=== PATIENT | male | born 1930 | race Caucasian/White ===

== ENCOUNTER 2016-11-30 12:09 | Inpatient (IN) | payer OTHER ==
[~2016-11-30] VITALS: Ht 165.1 cm; Wt 58.2 kg
--- NOTE | 2016-11-30 15:45 | ERA ---
ER Documentation Chief Complaint Date/Time DATE: 11/30/16 TIME: 15:44 Chief Complaint Right knee pain HPI The patient is 86-year-old male, presenting to the ER because of right knee pain for the last 3 days, worse today. He is unable to ambulate because of the pain. he denies any trauma, denies fever, chills, neck pain, chest pain, abdominal pain, vomiting, dysuria, diarrhea. He does not smoke, drink Past medical history: Hypertension, BPH Past surgical history: Right inguinal herniorrhaphy ROS All systems reviewed and are negative except as per history of present illness. Medications Home Meds Reported Medications Magnesium Oxide (Magnesium) 250 Mg Tablet, 250 MG PO BID, TAB 11/30/16 Naproxen* (Naproxen*) 500 Mg Tablet, 500 MG PO DAILY, TAB 11/30/16 Dutasteride* (Avodart*) 0.5 Mg Capsule, 0.5 MG PO DAILY, CAP 11/30/16 Donepezil* (Donepezil*) 5 Mg Tablet, 5 MG PO DAILY, #30 TAB 11/30/16 Aspirin* (Aspirin* EC) 81 Mg Tablet.dr, 81 MG PO DAILY, TAB 11/30/16 Amlodipine Besylate* (Amlodipine Besylate*) 5 Mg Tablet, 5 MG PO DAILY, #30 TAB 11/30/16 Multivitamins* (Theragran*) 1 Tab Tab, 1 TAB PO DAILY, TAB 11/30/16 Allergies Allergies: Coded Allergies: No Known Allergy (Unverified , 11/30/16) Physical Exam Vitals Vital Signs Date Time Temp Pulse Resp B/P Pulse Ox O2 Delivery O2 Flow Rate FiO2 11/30/16 20:27 97.5 58 18 116/59 100 Room Air 11/30/16 19:00 97.4 65 20 116/61 99 Room Air 11/30/16 12:20 100.6 69 20 118/57 99 Physical Exam Const: No acute distress. Head: Atraumatic. Eyes: Normal Conjunctiva. ENT: Normal External Ears, Nose and Mouth. Neck: Full range of motion. No meningismus. Resp: Clear to auscultation bilaterally. Cardio: Regular rate and rhythm, no murmurs. Abd: Soft, non distended, normal bowel sounds, non tender. Skin: No petechiae or rashes. Back: No midline or flank tenderness. Ext: Bilateral knee with crepitus. Right knee is edematous and warm to touch, vague calf tenderness Neur: Awake and alert. No focal deficit Psych: Normal Mood and Affect. Result Diagram: 11/30/16 1600 11/30/16 1600 Results 24 hrs Laboratory Tests Test 11/30/16 16:00 11/30/16 16:50 Activated Partial Thromboplast Time 33.9Sec Alanine Aminotransferase (ALT/SGPT) 13IU/L Albumin 4.2g/dl Albumin/Globulin Ratio 1.23 Alkaline Phosphatase 107IU/L Anion Gap 20 Aspartate Amino Transf (AST/SGOT) 18IU/L Basophils # 0.010^3/ul Basophils % 0.1% Blood Urea Nitrogen 31mg/dl Calcium Level 9.4mg/dl Carbon Dioxide Level 26mmol/L Chloride Level 101mmol/L Creatinine 1.24mg/dl Direct Bilirubin 0.00mg/dl Eosinophils # 0.010^3/ul Eosinophils % 0.1% Erythrocyte Sedimentation Rate 64mm/Hr Globulin 3.40g/dl Glucose Level 132mg/dl Hematocrit 38.5% Hemoglobin 13.1g/dl INR International Normalized Ratio 1.06 Indirect Bilirubin 0.5mg/dl Lactic Acid Level 1.5mmol/L Lymphocytes # 0.810^3/ul Lymphocytes % 6.7% Mean Corpuscular Hemoglobin 30.9pg Mean Corpuscular Hemoglobin Concent 34.0g/dl Mean Corpuscular Volume 90.9fl Mean Platelet Volume 7.9fl Monocytes # 1.510^3/ul Monocytes % 13.6% Neutrophils # 9.010^3/ul Neutrophils % 79.5% Nucleated Red Blood Cells # 0.010^3/ul Nucleated Red Blood Cells % 0.0/100WBC Platelet Count 25792^3/UL Potassium Level 4.9mmol/L Prothrombin Time 13.8Sec Prothrombin Time Ratio 1.1 Red Blood Count 4.2310^6/ul Red Cell Distribution Width 13.5% Sodium Level 142mmol/L Total Bilirubin 0.5mg/dl Total Protein 7.6g/dl Uric Acid 6.5mg/dl White Blood Count 11.310^3/ul Cholesterol Level 171mg/dl Cholesterol/HDL Ratio 3.2RATIO HDL Cholesterol 52mg/dl Hemoglobin A1c 5.3% LDL Cholesterol, Calculated 104mg/dl Magnesium Level 2.5mg/dl Thyroid Stimulating Hormone (TSH) Pending Triglycerides Level 73mg/dl Current Medications Medications (Trade) Dose Ordered Sig/Jadiel Route PRN Reason Start Time Stop Time Status Last Admin Dose Admin Acetaminophen 650 mg 650 mg ONCE ONCE PO 11/30/16 16:00 11/30/16 16:01 DC 11/30/16 16:56 Sodium Chloride 500 ml @ 500 mls/hr Q1H ONCE IV 11/30/16 18:30 11/30/16 19:29 DC 11/30/16 18:21 Vancomycin HCl 250 ml @ 125 mls/hr ONCE IVPB 11/30/16 18:30 11/30/16 20:29 DC 11/30/16 18:44 Ceftriaxone Sodium (Rocephin) 50 ml @ 100 mls/hr ONCE ONCE IVPB 11/30/16 18:30 11/30/16 18:59 DC 11/30/16 18:26 IV Flush (NS 3 ml) 3 ml PER PROTOCOL IV 11/30/16 20:00 UNV Ondansetron HCl (Zofran Inj) 4 mg Q6H PRN IV NAUSEA AND/OR VOMITING 11/30/16 20:00 UNV Acetaminophen (Tylenol Tab) 650 mg Q6H PRN PO PAIN LEVEL 1-3 OR FEVER 11/30/16 20:00 UNV Acetaminophen/ Hydrocodone Bitart ([place] (5/325)) 1 tab Q6H PRN PO MODERATE PAIN LEVEL 4-6 11/30/16 20:00 UNV Morphine Sulfate (morphine) 2 mg Q4H PRN IV SEVERE PAIN LEVEL 7-10 11/30/16 20:00 UNV Docusate Sodium (Colace) 100 mg Q12H PRN PO CONSTIPATION 11/30/16 20:00 UNV Famotidine (Pepcid) 20 mg Q12 PO 11/30/16 21:00 UNV Heparin Sodium (Porcine) (Heparin (5000 Units/0.5 ml)) 5,000 unit Q12 SC 11/30/16 21:00 UNV Amlodipine Besylate (Norvasc) 5 mg DAILY PO 12/01/16 09:00 UNV Aspirin (Halfprin) 81 mg DAILY PO 12/01/16 09:00 UNV Donepezil HCl (Aricept) 5 mg DAILY PO 12/01/16 09:00 UNV Dutasteride (Avodart) 0.5 mg DAILY PO 12/01/16 09:00 UNV Multivitamins Therapeutic (Theragran) 1 tab DAILY PO 12/01/16 09:00 UNV Miscellaneous Information 250 mg BID PO 11/30/16 21:00 UNV Vancomycin HCl (Vanco Iv Per Pharmacy) VANCOMYCIN PER PHARMACY PER PROTOCOL XX 11/30/16 20:00 UNV Procedures/[place] [id number] Radiology Main Line: [phone] DIAGNOSTIC IMAGING REPORT Patient: REFUGIO RIZVI : 1930 Age: 86 Sex: M MR #: [id number] DOS: 11/30/16 1552 Ordering MD: NABIL DA SILVA MD Location: E/R Room/Bed: PROCEDURE: XR left knee. CLINICAL INDICATION: Knee pain TECHNIQUE: 3 views are available for review. COMPARISON: None available FINDINGS: There is calcific enthesopathy involving the anterior superior aspect of the patella. There is mild to moderate osteoarthrosis involving the medial tibial femoral compartment and mild osteoarthrosis involving the patellofemoral compartment. This is associated with joint space narrowing, subchondral sclerosis and osteophytosis. There is a possible osteochondral defect involving the medial femoral condyle. No joint effusion is identified. The osseous structures are otherwise normal in mineralization, architecture and alignment. No fractures are identified. No osseous lesions are identified. The soft tissues are unremarkable. IMPRESSION: Calcific enthesopathy involving the anterior superior aspect of the patella. 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 Possible osteochondral defect involving the medial tibial femoral compartment No joint effusion identified. RPTAT: HGDB .Ko Denney MD, Date Time Electronically viewed and signed by .Ko Denney MD, on 11/30/2016 16:57 .B/ CC: NABIL DA SILVA MD [place] [address] Radiology Main Line: [phone] DIAGNOSTIC IMAGING REPORT Patient: REFUGIO RIZVI : 1930 Age: 86 Sex: M MR #: [id number] DOS: 11/30/16 1552 Ordering MD: NABIL DA SILVA MD Location: E/R Room/Bed: PROCEDURE: XR Chest. CLINICAL INDICATION: Sepsis TECHNIQUE: Single frontal chest x-ray. COMPARISON: None. FINDINGS: The lungs are clear of acute infiltrates, edema, effusions, or masses.. The cardiomediastinal silhouette is unremarkable. The osseous structures are intact. IMPRESSION: No acute cardiopulmonary disease. RPTAT: GG .Sid Sterling MD, MD Date Time Electronically viewed and signed by .Sid Sterling MD, MD on 11/30/2016 16:40 .L/ CC: NABIL DA SILVA MD [place] [address] Radiology Main Line: [phone] DIAGNOSTIC IMAGING REPORT Patient: REFUGIO RIZVI : 1930 Age: 86 Sex: M MR #: [id number] DOS: 11/30/16 1640 Ordering MD: NABIL DA SILVA MD Location: E/R Room/Bed: PROCEDURE: US Lower extremity Venous. CLINICAL INDICATION: Pain and swelling TECHNIQUE: Multiple sonographic images of the right lower extremity deep venous system was obtained utilizing grayscale, color-flow, compressive sonography and doppler imaging with augmentation. The images were reviewed on a PACS workstation. COMPARISON: None. FINDINGS: There is normal compressibility and flow within the right common femoral, deep femoral, superficial femoral and popliteal veins. Normal respiratory variation and augmentation is seen. There is normal color flow and compressibility of right posterior tibial and peroneal veins IMPRESSION: No sonographic evidence for right lower extremity deep venous thrombosis. RPTAT: HH .Eliseo Lerma MD, Date Time Electronically viewed and signed by .Eliseo Lerma MD, MD on 11/30/2016 17:44 .W/ CC: NABIL DA SILVA MD EKG: Read by emergency physician Rate/Rhythm: Normal Sinus Rhythm 74 beats/min QRS, ST, T-waves: No ST elevation, no T inversion, PAC, LVH Impression: Abnormal EKG MEDICAL MAKING DECISION: The patient is a 86-year-old male, presenting with acute right knee cellulitis, acute dehydration. He was treated with Tylenol for fever, normal saline 500 mL IV for acute dehydration, vancomycin IV and Rocephin IV for acute right knee cellulitis. The differential diagnoses considered include but are not limited to septic joint, gouty arthritis, abscess Departure Diagnosis: Primary Impression: Cellulitis of right knee Condition: Stable Comments I discussed the findings with the patient. I discussed the patient with the on- call hospitalist Dr. Quintanilla who was made aware of the lab, the treatment, the patient condition. The patient is admitted to medical surgery bed at 7:35 PM NABIL DA SILVA MD Nov 30, 2016 15:45
[2016-11-30] MEDS ORDERED: ACETAMINOPHEN 325 MG TAB PO ONE (16:00)
[2016-11-30 16:39] LABS: BASOPHILS % 0.1 % (0.0-2.0); CONDITION 1; EOSINOPHILS % 0.1 % (0.0-7.0); HEMATOCRIT 38.5 % (42.0-52.0); HEMOGLOBIN 13.1 g/dl (14.0-18.0); LYMPHOCYTES # 0.8 10^3/ul (0.8-2.9); LYMPHOCYTES % 6.7 % (15.0-51.0); MEAN CORPUSCULAR HEMOGLOBIN 30.9 pg (29.0-33.0); MEAN CORPUSCULAR VOLUME 90.9 fl (82.0-101.0); MEAN PLATELET VOLUME 7.9 fl (7.4-10.4); MONOCYTE # 1.5 10^3/ul (0.3-0.9); MONOCYTES % 13.6 % (0.0-11.0); NEUTROPHILS % 79.5 % (39.0-77.0); PLATELET COUNT 263 10^3/UL (140-440); RED BLOOD COUNT 4.23 10^6/ul (4.70-6.10); RED CELL DISTRIBUTION WIDTH 13.5 % (11.5-14.5); UNCORRECTED WBC 11.3 10^3/ul (4.8-10.8); WHITE BLOOD COUNT 11.3 10^3/ul (4.8-10.8)
--- NOTE | 2016-11-30 16:41 | RADRPT ---
PROCEDURE: XR Chest. CLINICAL INDICATION: Sepsis TECHNIQUE: Single frontal chest x-ray. COMPARISON: None. FINDINGS: The lungs are clear of acute infiltrates, edema, effusions, or masses.. The cardiomediastinal silho uette is unremarkable. The osseous structures are intact. IMPRESSION: No acute cardiopulmonary disease. RPTAT: GG .Sid Sterling MD, MD Date Time Electronically viewed and signed by .Sid Sterling MD, on 11/30/2016 16:40 .L/
[2016-11-30 16:46] LABS: INR 1.06; PROTIME 13.8 Sec (12.2-14.2); PT RATIO 1.1
[2016-11-30 16:47] LABS: PARTIAL THROMBOPLASTIN TIME 33.9 Sec (25.0-35.0)
[2016-11-30 16:52] LABS: ALBUMIN 4.2 g/dl (3.3-4.9)
[2016-11-30 16:53] LABS: POTASSIUM 4.9 mmol/L (3.5-5.1)
[2016-11-30 16:55] LABS: ALBUMIN/GLOBULIN RATIO 1.23; BILIRUBIN,INDIRECT 0.5 mg/dl (0-1.1); BILIRUBIN,TOTAL 0.5 mg/dl (0.2-1.3); CREATININE 1.24 mg/dl (0.61-1.24); TOTAL PROTEIN 7.6 g/dl (6.1-8.1)
[2016-11-30 16:56] LABS: CALCIUM 9.4 mg/dl (8.4-10.2); URIC ACID 6.5 mg/dl (3.1-7.9)
--- NOTE | 2016-11-30 16:57 | RADRPT ---
PROCEDURE: XR left knee. CLINICAL INDICATION: Knee pain TECHNIQUE: 3 views are available for review. COMPARISON: None available FINDINGS: There is calcific enthesopathy involving the anterior superior aspect of the patella. There is mild to moderate osteoarthrosis involving the medial tibial femoral compartment and mild osteoarthrosis i nvolving the patellofemoral compartment. This is associated with joint space narrowing, subchondral sclerosis and osteophytosis. There is a possible osteochondral defect involving the medial femoral c ondyle. No joint effusion is identified. The osseous structures are otherwise normal in mineralization, architecture and alignment. No fract ures are identified. No osseous lesions are identified. The soft tissues are unremarkable. IMPRESSION: Calcific enthesopathy involving the anterior superior aspect of the patella. 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 Possible osteochondral defect involving the medial tibial femoral compartment No joint effusion identified. RPTAT: HGDB .Ko Denney MD, MD Date Time Electronically viewed and signed by .Ko Denney MD, on 11/30/2016 16:57 .B/
--- NOTE | 2016-11-30 17:45 | RADRPT ---
PROCEDURE: US Lower extremity Venous. CLINICAL INDICATION: Pain and swelling TECHNIQUE: Multiple sonographic images of the right lower extremity deep venous system was obtaine d utilizing grayscale, color-flow, compressive sonography and doppler imaging with augmentation. Th e images were reviewed on a PACS workstation. COMPARISON: None. FINDINGS: There is normal compressibility and flow within the right common femoral, deep femoral, superficial femoral and popliteal veins. Normal respiratory variation and augmentation is seen. There is normal color flow and compressibility of right posterior tibial and peroneal veins IMPRESSION: No sonographic evidence for right lower extremity deep venous thrombosis. RPTAT: HH .Eliseo Lerma MD, MD Date Time Electronically viewed and signed by .Eliseo Lerma MD, on 11/30/2016 17:44 .W/
[2016-11-30] MEDS ORDERED: MULTI PO (17:53)
[2016-11-30] MEDS ORDERED: AMLO-145 PO (17:53)
[2016-11-30] MEDS ORDERED: ASPI-664 PO (17:54)
[2016-11-30] MEDS ORDERED: DUTA0.5C PO (17:54)
[2016-11-30] MEDS ORDERED: DONE5TAB7 PO (17:54)
[2016-11-30] MEDS ORDERED: NAPR-688 PO (17:55)
[2016-11-30] MEDS ORDERED: MAGN250T5 PO (17:58)
[2016-11-30] MEDS ORDERED: CEFTRIAXONE 2 GM/50 ML (PMX) 50 ML IVPB ONE (18:30)
[2016-11-30] MEDS ORDERED: SOD CHLORIDE 0.9% 500 ML IV ONE (18:30)
[2016-11-30] MEDS ORDERED: VANCOMYCIN 1 GM (PMX) 250 ML IVPB SCH (18:30)
[2016-11-30] MEDS ORDERED: morphine 2 MG INJ IV PRN (20:00)
[2016-11-30] MEDS ORDERED: ONDANSETRON 4 MG INJ IV PRN (20:00)
[2016-11-30] MEDS ORDERED: DOCUSATE SODIUM 100 MG CAP PO PRN (20:00)
[2016-11-30] MEDS ORDERED: NACL 0.9% 3 ML SYG IV SCH (20:00)
[2016-11-30] MEDS ORDERED: VANCOMYCIN IV PER PHARMACY XX SCH (20:00)
[2016-11-30] MEDS ORDERED: HYDROCODONE/APAP (5/325) TAB PO PRN (20:00)
[2016-11-30] MEDS ORDERED: ACETAMINOPHEN 325 MG TAB PO PRN (20:00)
--- NOTE | 2016-11-30 20:14 | HP ---
Date/Time of Note Date/Time of Note DATE: 11/30/16 TIME: 19:59 Assessment/Plan VTE Prophylaxis VTE Prophylaxis Intervention: heparin Assessment/Plan Assessment/Plan 86 yo male with a past medical history of essential hypertension, dementia, BPH , and arthritis, who presents with bilateral knee pain for 1 week duration. 1. Right knee effusion/cellulitis - will admit the patient to med/surg, obtain MRI knee - rule out other causes, continue with IV vancocin, pain management, PT eval, if MRI shows changes - consider ortho consult 2. Acute renal failure - 2/2 to dehydration - encourage po intake 3. Essential hypertension - continue with norvasc, prn hydralazine for sbp > 160 4. Dementia - continue with aricept 5. BPH - continue with dutasteride 6. GI ppx - pepcid 7. DVT ppx - heparin answered all of his questions. as per clinical course. this history and physical took greater then 45 minutes to complete HPI/ROS Admit Date/Time Admit Date/Time 11/30/2016, 7:59 pm Hx of Present Illness 86 yo male with a past medical history of essential hypertension, dementia, BPH , and arthritis, who presents with bilateral knee pain for 1 week duration. The patient states that the right knee hurts more than the left. Denies any falls or direct trauma recently. He had associated with this is fevers/chills, headaches, pain with mobility. No bug bites or recent scratches. Denies any chest pain, shortness of breath, loss of consciousness, urinary/bowel irregularities, or other constitutional symptoms. ER course: IV vanc ROS 14 point review of systems completed, please refer to HPI for any positive findings PMH/Family/Social Past Medical History dementia, bph, arthritis Medical History: hypertension Past Surgical History right inguinal hernia Family History Significant Family History: no pertinent family hx, heart disease (none), cancer (none), COPD (none) Social History Alcohol Use: rarely Smoking Status: Never smoker Drug Use: none Exam/Review of Systems Vital Signs Vitals Vital Signs Date Time Temp Pulse Resp B/P Pulse Ox O2 Delivery O2 Flow Rate FiO2 11/30/16 12:20 100.6 69 20 118/57 99 Exam Exam Gen Syed: mild to moderate distress 2/2 to right knee pain, AAOx4 HEENT: NC/AT, PERRLA, EOMI, no pharyngeal erythema, no tonsillar exudates, no lymphadenopathy, no JVD, no carotid bruits NECK: supple, no thyromegaly THORAX: symmetrical, no obvious deformities CV: S1S2, RRR, no M/G/R Lungs: CTAB no W/C/R/R Abd: soft, NT/ND, +BS, no rebound, no guarding, neg HSM EXT: right knee with surrounding edema, warm to touch, pain with movement, left with no erythema or edema noted Neuro: CN II-XII grossly intact, no focal deficits Psych: fair mood and affect Skin: mild erythema right knee Labs Result Diagram: 11/30/16 1600 11/30/16 1600 Medications Medications Current Medications Vancomycin HCl (Vancocin) 250 ml @ 125 mls/hr ONCE IVPB Last administered on t 18:44; Admin Dose 125 MLS/HR; Start 11/30/16 at 18:30; Stop 11/30/16 at 20:29 Procedures Procedures Venous Duplex IMPRESSION: No sonographic evidence for right lower extremity deep venous thrombosis. CXR IMPRESSION: No acute cardiopulmonary disease. Right Knee XR IMPRESSION: Calcific enthesopathy involving the anterior superior aspect of the patella. 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 Possible osteochondral defect involving the medial tibial femoral compartment No joint effusion identified. JUAN LUIS LIZARRAGA MD Nov 30, 2016 20:10
[2016-11-30 20:21] LABS: MAGNESIUM 2.5 mg/dl (1.7-2.5)
[2016-11-30 20:22] LABS: CHOL/HDL RATIO 3.2 RATIO
[2016-11-30 20:27] VITALS: TEMP 97.5
[2016-11-30 20:54] LABS: THYROID STIMULATING HORMONE 1.07 MIU/L (0.465-4.680)
[2016-11-30 21:45] VITALS: BP 128/59; PULSE 61; RESP 21
[2016-11-30 22:14] VITALS: Ht 165.1 cm; Wt 58.2 kg
[2016-11-30] MEDS: HEPARIN 5,000 UNIT/0.5 ML SYG SC SCH (23:53)
[2016-11-30] MEDS: FAMOTIDINE 20 MG TAB PO SCH (23:53)
--- NOTE | 2016-12-01 03:13 | RADRPT ---
PROCEDURE: MR Knee. CLINICAL INDICATION: Right knee edema. Pain all around the right knee joint with difficulty ambul ating. TECHNIQUE: Noncontrast MRI of the right knee, with axial, sagittal and coronal reformatted images. STIR and proton density sequences were employed. COMPARISON: No prior studies are available for comparison. FINDINGS: Increased fluid signal within the ACL compatible with age indeterminate nonspecific low grade injury . There intact fibers identified. The PCL, extensor mechanism tendons and collateral ligamentous supporting structures are all normal. The posterolateral corner is intact. The menisci are normal. There are no tears flaps or flipped meniscal fragments. The meniscal roots are intact. 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 Likely full-thickness articular cartilage chondrolysis at the medi al upper patellar facet, with single subchondral cyst. Remaining articular cartilage is intact. Tendinosis of the insertional popliteus. There is a [id number] joint effusion. Complex ganglion cyst at the medial aspect of the proximal tibiofibular articulation compatible join t capsule injury, and this cyst measures 21 x 16 x 13 mm. Extensive subcutaneous and soft tissue edema over the knee, greater in the popliteal fossa. IMPRESSION: 1. Age indeterminate nonspecific low grade ACL injury, with intact fibers identified. 2. 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 3. Very mild articular cartilage chondrolysis in the medial patellar facet. 4. Tendinosis of the insertional popliteus. 5. There is a [id number] joint effusion. 6. Complex ganglion cyst at the medial aspect of the proximal tibiofibular articulation, compatible with joint capsule injury. RPTAT: [facility] Physician Peggy Date Time Electronically viewed and signed by Physician Peggy on 12/01/2016 03:13 RS/
[2016-12-01 06:10] LABS: POTASSIUM 4.1 mmol/L (3.5-5.1)
[2016-12-01 06:12] LABS: CREATININE 0.93 mg/dl (0.61-1.24)
[2016-12-01 06:13] LABS: CALCIUM 8.6 mg/dl (8.4-10.2)
[2016-12-01 08:03] VITALS: BP 118/57; RESP 62
[2016-12-01 09:04] LABS: BASOPHILS % 0.5 % (0.0-2.0); EOSINOPHILS # 0.1 10^3/ul (0.0-0.5); EOSINOPHILS % 2.2 % (0.0-7.0); HEMATOCRIT 31.9 % (42.0-52.0); HEMOGLOBIN 11.1 g/dl (14.0-18.0); LYMPHOCYTES % 16.7 % (15.0-51.0); MEAN CORPUSCULAR HEMOGLOBIN 31.5 pg (29.0-33.0); MEAN CORPUSCULAR HGB CONC 34.9 g/dl (32.0-37.0); MEAN CORPUSCULAR VOLUME 90.5 fl (82.0-101.0); MEAN PLATELET VOLUME 8.1 fl (7.4-10.4); MONOCYTE # 0.8 10^3/ul (0.3-0.9); NEUTROPHIL # 4.1 10^3/ul (1.6-7.5); NEUTROPHILS % 67.6 % (39.0-77.0); PLATELET COUNT 215 10^3/UL (140-440); RED BLOOD COUNT 3.52 10^6/ul (4.70-6.10); RED CELL DISTRIBUTION WIDTH 13.4 % (11.5-14.5); UNCORRECTED WBC 6.1 10^3/ul (4.8-10.8); WHITE BLOOD COUNT 6.1 10^3/ul (4.8-10.8)
[2016-12-01 09:08] LABS: CONDITION 1
[2016-12-01] MEDS: DUTASTERIDE 0.5 MG CAP PO SCH (09:11)
[2016-12-01] MEDS: ASPIRIN (EC) 81 MG TAB PO SCH (09:11)
[2016-12-01] MEDS: MULTIVITAMINS THERAPEUTIC TAB PO SCH (09:11)
[2016-12-01] MEDS: DONEPEZIL 5 MG TAB PO SCH (09:11)
[2016-12-01] MEDS: AMLODIPINE 5 MG TAB PO SCH (09:12)
[2016-12-01] MEDS: HEPARIN 5,000 UNIT/0.5 ML SYG SC SCH ×2 (09:13→20:47)
[2016-12-01] MEDS: MAGNESIUM OXIDE 400 MG TAB PO SCH ×2 (13:40→20:44)
[2016-12-01] MEDS ORDERED: VANCOMYCIN 1 GM in NS 250 ML IVPB SCH (15:00)
--- NOTE | 2016-12-01 15:47 | PN ---
Date/Time of Note Date/Time of Note DATE: 12/01/16 TIME: 15:36 Assessment/Plan VTE Prophylaxis VTE Prophylaxis Intervention: heparin Lines/Catheters IV Catheter Type (from Nrs): Saline Lock Urinary Cath still in place: No Assessment/Plan Assessment/Plan 1. Right knee effusion/cellulitis - arthrocentesis, on vancomycin 2. Acute renal failure - 2/2 to dehydration - encourage po intake 3. Essential hypertension - continue with norvasc, prn hydralazine for sbp > 160 4. Dementia - continue with aricept 5. BPH - continue with dutasteride 6. GI ppx - pepcid 7. DVT ppx - heparin Subjective 24 Hr Interval Summary Free Text/Dictation less pain on right knee Exam/Review of Systems Vital Signs Vitals Vital Signs Date Time Temp Pulse Resp B/P Pulse Ox O2 Delivery O2 Flow Rate FiO2 12/01/16 08:03 97.6 62 62 118/57 97 11/30/16 21:45 Room Air Exam Constitutional: alert, oriented, well developed Psych: nl mood/affect, no complaints Head: atraumatic, normocephalic Eyes: EOMI, nl conjunctiva, nl lids ENMT: nl external ears & nose, nl lips & teeth, nl nasal mucosa & septum Neck: non-tender, supple Respiratory: clear to auscultation, normal air movement, No congested cough, No crackles/rales, No diminished breath sounds, No intercostal retraction, No labored breathing, No other, No respirations, No tactile fremitus, No wheezing Cardiovascular: nl pulses, regular rate and rhythm, No S3, No S4, No bruits, No diastolic murmur, No edema, No gallop, No irregular rhythm, No jugular venous distention (JVD), No murmurs/extra sounds, No other, No rub, No systolic murmur Gastrointestinal: nl liver, spleen, non-tender, soft, No ascites, No bowel sounds, No distended, No firm, No hepatomegaly, No mass , No other, No rebound or guarding, No splenomegaly, No surgical scars, No tender Musculoskeletal: other (right knee swelling, warm, pain) Extremities: normal pulses, No calf tenderness, No clubbing, No cyanosis, No edema, No other, No palpable cord, No pitting pedal edema, No tenderness Neurological: EKG/ECG TECHNICIAN II-XII intact, nl mental status, nl speech, nl strength Results Result Diagram: 12/01/16 0500 12/01/16 0500 Results 24 hrs Laboratory Tests Test 11/30/16 16:00 11/30/16 16:50 11/30/16 20:40 11/30/16 23:00 Activated Partial Thromboplast Time 33.9 Alanine Aminotransferase (ALT/SGPT) 13 Albumin 4.2 Albumin/Globulin Ratio 1.23 Alkaline Phosphatase 107 Anion Gap 20 H Aspartate Amino Transf (AST/SGOT) 18 Basophils # 0.0 Basophils % 0.1 Blood Urea Nitrogen 31 H Calcium Level 9.4 Carbon Dioxide Level 26 Chloride Level 101 Creatinine 1.24 Direct Bilirubin 0.00 Eosinophils # 0.0 Eosinophils % 0.1 Erythrocyte Sedimentation Rate 64 H Globulin 3.40 H Glucose Level 132 Hematocrit 38.5 L Hemoglobin 13.1 L INR International Normalized Ratio 1.06 Indirect Bilirubin 0.5 Lactic Acid Level 1.5 0.7 1.0 Lymphocytes # 0.8 Lymphocytes % 6.7 L Mean Corpuscular Hemoglobin 30.9 Mean Corpuscular Hemoglobin Concent 34.0 Mean Corpuscular Volume 90.9 Mean Platelet Volume 7.9 Monocytes # 1.5 H Monocytes % 13.6 H Neutrophils # 9.0 H Neutrophils % 79.5 H Nucleated Red Blood Cells # 0.0 Nucleated Red Blood Cells % 0.0 Platelet Count 263 Potassium Level 4.9 Prothrombin Time 13.8 Prothrombin Time Ratio 1.1 Red Blood Count 4.23 L Red Cell Distribution Width 13.5 Sodium Level 142 Total Bilirubin 0.5 Total Protein 7.6 Uric Acid 6.5 White Blood Count 11.3 H Cholesterol Level 171 Cholesterol/HDL Ratio 3.2 HDL Cholesterol 52 Hemoglobin A1c 5.3 LDL Cholesterol, Calculated 104 Magnesium Level 2.5 Thyroid Stimulating Hormone (TSH) 1.070 Triglycerides Level 73 Test 12/01/16 05:00 Anion Gap 14 Basophils # 0.0 Basophils % 0.5 Blood Urea Nitrogen 27 H Calcium Level 8.6 Carbon Dioxide Level 26 Chloride Level 106 Creatinine 0.93 Eosinophils # 0.1 Eosinophils % 2.2 Glucose Level 92 # Hematocrit 31.9 L Hemoglobin 11.1 L Lymphocytes # 1.0 Lymphocytes % 16.7 Mean Corpuscular Hemoglobin 31.5 Mean Corpuscular Hemoglobin Concent 34.9 Mean Corpuscular Volume 90.5 Mean Platelet Volume 8.1 Monocytes # 0.8 Monocytes % 13.0 H Neutrophils # 4.1 Neutrophils % 67.6 Nucleated Red Blood Cells # 0.0 Nucleated Red Blood Cells % 0.0 Platelet Count 215 Potassium Level 4.1 Red Blood Count 3.52 L Red Cell Distribution Width 13.4 Sodium Level 142 White Blood Count 6.1 # Medications Medications Current Medications Ondansetron HCl (Zofran Inj) 4 mg Q6H PRN IV NAUSEA AND/OR VOMITING; Start at 20:00 Acetaminophen (Tylenol Tab) 650 mg Q6H PRN PO PAIN LEVEL 1-3 OR FEVER Last administered on 12/01/16 09:22; Admin Dose 650 MG; Start 11/30/16 at 20:00 Acetaminophen/ Hydrocodone Bitart ([place] (5/325)) 1 tab Q6H PRN PO MODERATE PAIN LEVEL 4-6; Start 11/30/16 at 20:00 Morphine Sulfate (morphine) 2 mg Q4H PRN IV SEVERE PAIN LEVEL 7-10; Start 11/30 at 20:00 Docusate Sodium (Colace) 100 mg Q12H PRN PO CONSTIPATION; Start 11/30/16 at 20: 00 Famotidine (Pepcid) 20 mg HS PO Last administered on 11/30/16 23:53; Admin Dose 20 MG; Start 11/30/16 at 22:00 Heparin Sodium (Porcine) (Heparin (5000 Units/0.5 ml)) 5,000 unit Q12 SC Last administered on 12/01/16 09:13; Admin Dose 5,000 UNIT; Start 11/30/16 at 21:00 Amlodipine Besylate (Norvasc) 5 mg DAILY PO Last administered on 12/01/16 09: 12; Admin Dose 5 MG; Start 12/01/16 at 09:00 Aspirin (Halfprin) 81 mg DAILY PO Last administered on 12/01/16 09:11; Admin Dose 81 MG; Start 12/01/16 at 09:00 Donepezil HCl (Aricept) 5 mg DAILY PO Last administered on 12/01/16 09:11; Admin Dose 5 MG; Start 12/01/16 at 09:00 Dutasteride (Avodart) 0.5 mg DAILY PO Last administered on 12/01/16 09:11; Admin Dose 0.5 MG; Start 12/01/16 at 09:00 Multivitamins Therapeutic (Theragran) 1 tab DAILY PO Last administered on 09:11; Admin Dose 1 TAB; Start 12/01/16 at 09:00 Magnesium Oxide (Mag-Ox 400) 400 mg BID PO Last administered on 12/01/16 13:40 ; Admin Dose 400 MG; Start 12/01/16 at 13:00 Influenza Virus Vaccine 0.5 ml 0.5 ml ONCE ONCE IM* ; Start 12/02/16 at 09:00; Stop 12/02/16 at 09:01 Vancomycin HCl/ Sodium Chloride (Vancocin/NS) 250 ml @ 83.333 mls/ hr Q24H IVPB ; Start 12/01/16 at 15:00 ANASTACIO BURK MD Dec 01, 2016 15:46
[2016-12-01] MEDS: VANCOMYCIN 1.25 GM in SOD CHLORIDE 0.9% 250 ML IVPB SCH (16:27)
[2016-12-01 20:06] VITALS: BP 120/61; RESP 16
[2016-12-01] MEDS: FAMOTIDINE 20 MG TAB PO SCH (20:44)
[2016-12-02 07:25] VITALS: BP 133/63; RESP 18
[2016-12-02] MEDS ORDERED: INFLUENZA VIRUS VACCINE 0.5 ML (DISPENSING) IM* ONE (09:00)
[2016-12-02] MEDS ORDERED: LIDOCAINE 1% (MPF) 5 ML VIAL ONE (09:23)
--- NOTE | 2016-12-02 10:12 | RADRPT ---
PROCEDURE: Targeted ultrasound of the right knee. CLINICAL INDICATION: Planning for right knee aspiration. TECHNIQUE: Axial and sagittal images were performed over the suprapatellar bursa. COMPARISON: No. FINDINGS: There is a large loculated fluid collection in the suprapatellar bursa of the right knee. IMPRESSION: 1. A loculated/complex joint space effusion is noted in the suprapatellar area of the right knee. RPTAT:AAJJ Physician Briana Date Time Electronically viewed and signed by Lucas oJiner Physician on 12/02/2016 10:12 /
[2016-12-02] MEDS: DUTASTERIDE 0.5 MG CAP PO SCH (10:33)
[2016-12-02] MEDS: AMLODIPINE 5 MG TAB PO SCH (10:33)
[2016-12-02] MEDS: ASPIRIN (EC) 81 MG TAB PO SCH (10:33)
[2016-12-02] MEDS: MAGNESIUM OXIDE 400 MG TAB PO SCH ×2 (10:33→21:13)
[2016-12-02] MEDS: DONEPEZIL 5 MG TAB PO SCH (10:34)
[2016-12-02] MEDS: MULTIVITAMINS THERAPEUTIC TAB PO SCH (10:34)
[2016-12-02] MEDS: HEPARIN 5,000 UNIT/0.5 ML SYG SC SCH ×2 (10:35→21:18)
[2016-12-02 11:23] VITALS: BP 133/63; RESP 18
[2016-12-02 12:24] LABS: SYNOVIAL FLUID CLARITY Cloudy; SYNOVIAL FLUID COLOR Yellow; SYNOVIAL FLUID TYPE Right Knee; SYNOVIAL FLUID VOLUME 1.8 mL (0-3.5); SYNOVIAL FLUID WBC 8553 /cmm (0-150)
[2016-12-02 12:25] LABS: LYMPHOCYTES,SYNOVIAL FLUID 3; NEUTROPHILS,SYNOVIAL FLUID 81 % (0-25)
--- NOTE | 2016-12-02 15:15 | PN ---
Date/Time of Note Date/Time of Note DATE: 12/02/16 TIME: 15:03 Assessment/Plan VTE Prophylaxis VTE Prophylaxis Intervention: heparin Lines/Catheters IV Catheter Type (from Nrs): Saline Lock Urinary Cath still in place: No Assessment/Plan Assessment/Plan 1. Right knee effusion/cellulitis - arthrocentesis 12/02/2016, no crystals, likely infectious, on vancomycin, ortho consult, follow up with culture 2. Acute renal failure - 11/11 to dehydration, resolved 3. Essential hypertension - controlled with norvasc 4. Dementia - continue with aricept 5. BPH - continue with dutasteride 6. GI ppx - pepcid 7. DVT ppx - heparin Subjective 24 Hr Interval Summary Free Text/Dictation right knee pain Exam/Review of Systems Vital Signs Vitals Vital Signs Date Time Temp Pulse Resp B/P Pulse Ox O2 Delivery O2 Flow Rate FiO2 12/02/16 11:23 98.6 18 133/63 Room Air 12/02/16 07:25 65 96 Intake and Output 12/01/16 12/01/16 12/02/16 15:00 23:00 07:00 Intake Total 1090 ml 950 ml Balance 1090 ml 950 ml Exam Constitutional: alert, oriented Head: atraumatic, normocephalic Eyes: EOMI, PERRL, nl conjunctiva, nl lids, nl sclera ENMT: nl external ears & nose, nl lips & teeth, nl nasal mucosa & septum Neck: non-tender, supple Respiratory: clear to auscultation, normal air movement, No congested cough, No crackles/rales, No diminished breath sounds, No intercostal retraction, No labored breathing, No other, No respirations, No tactile fremitus, No wheezing Cardiovascular: nl pulses, regular rate and rhythm, No S3, No S4, No bruits, No diastolic murmur, No edema, No gallop, No irregular rhythm, No jugular venous distention (JVD), No murmurs/extra sounds, No other, No rub, No systolic murmur Gastrointestinal: nl liver, spleen, non-tender, soft, No ascites, No bowel sounds, No distended, No firm, No hepatomegaly, No mass , No other, No rebound or guarding, No splenomegaly, No surgical scars, No tender Extremities: other (right knee redness and pain) Neurological: INFANTRY OPERATIONS SPECIALIST II-XII intact, nl mental status, nl speech, nl strength Skin: nl turgor Results Result Diagram: 12/01/16 0500 12/01/16 0500 Results 24 hrs Laboratory Tests Test 12/02/16 08:50 Synovial Fluid Appearance Cloudy Synovial Fluid Color Yellow Synovial Fluid Crystals No crystals seen Synovial Fluid Lymphocytes 3 Synovial Fluid Monocytes 4 Synovial Fluid Neutrophils 81 H Synovial Fluid Other Cells Synovial Fluid Source Right Knee Synovial Fluid Volume 1.8 Synovial Fluid WBC 8553 H Medications Medications Current Medications Ondansetron HCl (Zofran Inj) 4 mg Q6H PRN IV NAUSEA AND/OR VOMITING; Start at 20:00 Acetaminophen (Tylenol Tab) 650 mg Q6H PRN PO PAIN LEVEL 1-3 OR FEVER Last administered on 12/01/16 09:22; Admin Dose 650 MG; Start 11/30/16 at 20:00 Acetaminophen/ Hydrocodone Bitart ([place] (5/325)) 1 tab Q6H PRN PO MODERATE PAIN LEVEL 4-6; Start 11/30/16 at 20:00 Morphine Sulfate (morphine) 2 mg Q4H PRN IV SEVERE PAIN LEVEL 7-10; Start 11/30 at 20:00 Docusate Sodium (Colace) 100 mg Q12H PRN PO CONSTIPATION; Start 11/30/16 at 20: 00 Famotidine (Pepcid) 20 mg HS PO Last administered on 12/01/16 20:44; Admin Dose 20 MG; Start 11/30/16 at 22:00 Heparin Sodium (Porcine) (Heparin (5000 Units/0.5 ml)) 5,000 unit Q12 SC Last administered on 12/02/16 10:35; Admin Dose 5,000 UNIT; Start 11/30/16 at 21:00 Amlodipine Besylate (Norvasc) 5 mg DAILY PO Last administered on 12/02/16 10: 33; Admin Dose 5 MG; Start 12/01/16 at 09:00 Aspirin (Halfprin) 81 mg DAILY PO Last administered on 12/02/16 10:33; Admin Dose 81 MG; Start 12/01/16 at 09:00 Donepezil HCl (Aricept) 5 mg DAILY PO Last administered on 12/02/16 10:34; Admin Dose 5 MG; Start 12/01/16 at 09:00 Dutasteride (Avodart) 0.5 mg DAILY PO Last administered on 12/02/16 10:33; Admin Dose 0.5 MG; Start 12/01/16 at 09:00 Multivitamins Therapeutic (Theragran) 1 tab DAILY PO Last administered on 10:34; Admin Dose 1 TAB; Start 12/01/16 at 09:00 Magnesium Oxide 400 mg 400 mg BID PO Last administered on 12/02/16 10:33; Admin Dose 400 MG; Start 12/01/16 at 13:00 Vancomycin HCl/ Sodium Chloride (Vancocin/NS) 250 ml @ 83.333 mls/ hr Q24H IVPB Last administered on 12/01/16 16:27; Admin Dose 83.333 MLS/HR; Start at 15:00 ANASTACIO BURK MD Dec 02, 2016 15:13
[2016-12-02] MEDS: VANCOMYCIN 1.25 GM in SOD CHLORIDE 0.9% 250 ML IVPB SCH (17:29)
--- NOTE | 2016-12-02 18:14 | CONS ---
DATE OF ADMISSION: 11/30/2016 DATE OF CONSULTATION: 12/02/2016 TYPE OF CONSULTATION: Infectious Disease. REASON FOR CONSULTATION: Antibiotic management. HISTORY OF PRESENT ILLNESS: Henrry Walker is an 86-year-old, male with a past medica l history of: 1. Essential hypertension. 2. Dementia. 3. EBV hypertrophy. 4. Arthritis. Who presents with bilateral knee pain for 1-week's duration. The patient states that his right knee hurts more than the left. He denies any recent falls. He has no fever or chills. His past proble ms include as noted, dementia, and BPH and arthritis, as well as hypertension. PAST SURGICAL HISTORY: Right inguinal hernia. FAMILY HISTORY: Noncontributory. SOCIAL HISTORY: He does not smoke, drink or abuse drugs. PHYSICAL EXAMINATION GENERAL: The patient is an elderly appearing, male who is alert, responsive, in no acute d istress. VITAL SIGNS: Stable. He is afebrile. SKIN: Without generalized rash. HEENT: Within normal limits. NECK: Supple. LYMPHATIC: Lymph nodes: None palpable. CHEST: Decreased breath sounds at the bases. HEART: Without murmur or gallop. ABDOMEN: Soft, nontender, without organosplenomegaly or masses. EXTREMITIES: Right knee has surrounding erythema, edema and some fluctuance. On the left, there is no erythema or edema. RECTAL: Deferred. GENITAL: Deferred. NEUROLOGIC: No focal neurological abnormalities. ANCILLARY LABORATORY DATA: White count is 11.3; H and H of 13.1 and 38.5; platelet count 263,000. BUN and creatinine 31/1.24, glucose of 132. DIAGNOSTICS: The patient was started on vancomycin. He had no evidence for deep vein thrombophlebi tis. Chest x-ray: No acute cardiopulmonary disease. X-ray of the knee showed calcific enthesopath y involving the anterosuperior aspects of the patella, mild to moderate osteoarthrosis involving the medial tibiofemoral compartment and mild osteoarthrosis involving the patellofemoral compartment. HOSPITAL COURSE: Patient's blood cultures are negative. Urine: Mixed gram-positive organisms. Wh ite count of 6.1 on the . Patient has a right knee effusion, cellulitis. An arthrocentesis was done, which showed no crystals, but likely showed infection. The patient was placed on vancomycin. Dr. Ryan Wong will follow up. ASSESSMENT AND PLAN: The patient with likely septic arthritis. His synovial fluid showed 8553 whit e cells, with 81 polys, 3 lymphs; not overly impressive. This could also be trauma. I will dictate my findings to Dr. Gutierrez and Dr. Ryan Wong. There is a large loculated fluid collection in the supr apatellar bursa of the right knee. This could very well be a bursitis rather than a joint effusion and Dr. Ryan Wong will have to evaluate, but he could have a suprapatellar bursitis. I will dictate my findings to Dr. Wong and Dr. Gutierrez. Dictated By: FREDERICK LAY MD, JD/[place] Conf#: [id number] DID#: [id number]
[2016-12-02 20:06] VITALS: BP 120/61; RESP 18
[2016-12-02] MEDS: FAMOTIDINE 20 MG TAB PO SCH (21:13)
--- NOTE | 2016-12-02 22:06 | CONS ---
Date/Time of Note Date/Time of Note DATE: 12/02/16 TIME: 22:06 Consultation Date/Type/Reason Admit Date/Time Nov 30, 2016 at 19:37 Initial Consult Date Exam/Review of Systems Vital Signs Vitals Vital Signs Date Time Temp Pulse Resp B/P Pulse Ox O2 Delivery O2 Flow Rate FiO2 12/02/16 11:23 98.6 18 133/63 Room Air 12/02/16 07:25 65 96 Intake and Output 12/01/16 12/01/16 12/02/16 15:00 23:00 07:00 Intake Total 1090 ml 950 ml Balance 1090 ml 950 ml Results Result Diagram: 12/01/16 0500 12/01/16 0500 Results 24 hrs Laboratory Tests Test 12/02/16 08:50 Synovial Fluid Appearance Cloudy Synovial Fluid Color Yellow Synovial Fluid Crystals No crystals seen Synovial Fluid Lymphocytes 3 Synovial Fluid Monocytes 4 Synovial Fluid Neutrophils 81 H Synovial Fluid Other Cells Synovial Fluid Source Right Knee Synovial Fluid Volume 1.8 Synovial Fluid WBC 8553 H Medications Medications Current Medications Ondansetron HCl (Zofran Inj) 4 mg Q6H PRN IV NAUSEA AND/OR VOMITING; Start at 20:00 Acetaminophen (Tylenol Tab) 650 mg Q6H PRN PO PAIN LEVEL 1-3 OR FEVER Last administered on 12/01/16 09:22; Admin Dose 650 MG; Start 11/30/16 at 20:00 Acetaminophen/ Hydrocodone Bitart ([place] (5/325)) 1 tab Q6H PRN PO MODERATE PAIN LEVEL 4-6; Start 11/30/16 at 20:00 Morphine Sulfate (morphine) 2 mg Q4H PRN IV SEVERE PAIN LEVEL 7-10; Start 11/30 at 20:00 Docusate Sodium (Colace) 100 mg Q12H PRN PO CONSTIPATION; Start 11/30/16 at 20: 00 Famotidine (Pepcid) 20 mg HS PO Last administered on 12/02/16 21:13; Admin Dose 20 MG; Start 11/30/16 at 22:00 Heparin Sodium (Porcine) (Heparin (5000 Units/0.5 ml)) 5,000 unit Q12 SC Last administered on 12/02/16 21:18; Admin Dose 5,000 UNIT; Start 11/30/16 at 21:00 Amlodipine Besylate (Norvasc) 5 mg DAILY PO Last administered on 12/02/16 10: 33; Admin Dose 5 MG; Start 12/01/16 at 09:00 Aspirin (Halfprin) 81 mg DAILY PO Last administered on 12/02/16 10:33; Admin Dose 81 MG; Start 12/01/16 at 09:00 Donepezil HCl (Aricept) 5 mg DAILY PO Last administered on 12/02/16 10:34; Admin Dose 5 MG; Start 12/01/16 at 09:00 Dutasteride (Avodart) 0.5 mg DAILY PO Last administered on 12/02/16 10:33; Admin Dose 0.5 MG; Start 12/01/16 at 09:00 Multivitamins Therapeutic (Theragran) 1 tab DAILY PO Last administered on 10:34; Admin Dose 1 TAB; Start 12/01/16 at 09:00 Magnesium Oxide 400 mg 400 mg BID PO Last administered on 12/02/16 21:13; Admin Dose 400 MG; Start 12/01/16 at 13:00 Vancomycin HCl/ Sodium Chloride (Vancocin/NS) 250 ml @ 83.333 mls/ hr Q24H IVPB Last administered on 12/02/16 17:29; Admin Dose 83.333 MLS/HR; Start at 15:00 CLAUDIA HARRISON MD Dec 02, 2016 22:06
[2016-12-03 07:20] VITALS: BP 123/73; RESP 18
[2016-12-03 08:10] LABS: CREATININE 0.91 mg/dl (0.61-1.24)
[2016-12-03] MEDS: DONEPEZIL 5 MG TAB PO SCH (09:30)
[2016-12-03] MEDS: ASPIRIN (EC) 81 MG TAB PO SCH (09:30)
[2016-12-03] MEDS: DUTASTERIDE 0.5 MG CAP PO SCH (09:30)
[2016-12-03] MEDS: MULTIVITAMINS THERAPEUTIC TAB PO SCH (09:31)
[2016-12-03] MEDS: MAGNESIUM OXIDE 400 MG TAB PO SCH ×2 (09:31→20:47)
[2016-12-03] MEDS: AMLODIPINE 5 MG TAB PO SCH (09:31)
[2016-12-03] MEDS: HEPARIN 5,000 UNIT/0.5 ML SYG SC SCH ×2 (09:33→20:48)
--- NOTE | 2016-12-03 14:17 | PN ---
DATE: 12/03/2016 SUBJECTIVE: No acute changes. Patient is alert, eating lunch, looks comfortable. Right knee pain improved. No fevers. No CBC this morning. BUN 23, creatinine 0.91. ANTIMICROBIALS: Vancomycin. PHYSICAL EXAMINATION: GENERAL: Fragile and elderly man who is alert, in no distress. HEENT: Head atraumatic, normocephalic. Sclerae anicteric. Buccal mucosa pink. NECK: Supple, trachea midline. CHEST: Rise symmetrical. Breath sounds clear. HEART: S1, S2. ABDOMEN: Soft, bowel tones present. EXTREMITIES: With right knee edema and erythema resolving. ASSESSMENT: 1. Right knee pain status post fluid aspiration, cultures so far have been negative. Overall impro ving, likely osteomyelitis, arthritis. 2. Hypertension. 3. Anemia. 4. Dementia. PLAN: The patient remains stable. Right knee looks much better. He has less pain. He is going to go again he is being followed by Ortho. His synovial fluid culture is preliminary negative and flu id cytology revealed white blood cell count of 8553. Continue present care, doubt patient has sept ic joint. We will follow Ortho recommendations. Dictated By: LEROY MARSHALL HAND EDGER for FREDERICK LAY MD NI/NTS Conf#: [id number] DID#: [id number]
[2016-12-03] MEDS: VANCOMYCIN 1.25 GM in SOD CHLORIDE 0.9% 250 ML IVPB SCH (15:08)
--- NOTE | 2016-12-03 16:38 | PN ---
Date/Time of Note Date/Time of Note DATE: 12/03/16 TIME: 16:34 Assessment/Plan VTE Prophylaxis VTE Prophylaxis Intervention: heparin Lines/Catheters IV Catheter Type (from Nrs): Saline Lock Urinary Cath still in place: No Assessment/Plan Assessment/Plan 1. Right knee effusion/cellulitis - arthrocentesis 12/02/2016, no crystals, likely infectious, on vancomycin, ortho consult, follow up with culture 2. Acute renal failure - 11/11 to dehydration, resolved 3. Essential hypertension - controlled with norvasc 4. Dementia - continue with aricept 5. BPH - continue with dutasteride 6. GI ppx - pepcid 7. DVT ppx - heparin Subjective 24 Hr Interval Summary Free Text/Dictation less pain on right knee. afebrile Exam/Review of Systems Vital Signs Vitals Vital Signs Date Time Temp Pulse Resp B/P Pulse Ox O2 Delivery O2 Flow Rate FiO2 12/03/16 07:20 98.6 80 18 123/73 98 12/02/16 11:23 Room Air Intake and Output 12/02/16 12/02/16 12/03/16 15:00 23:00 07:00 Intake Total 1630 ml 850 ml Balance 1630 ml 850 ml Exam Constitutional: alert, oriented, well developed Psych: nl mood/affect, no complaints Head: atraumatic, normocephalic Eyes: EOMI, PERRL, nl conjunctiva, nl lids ENMT: nl external ears & nose, nl lips & teeth, nl nasal mucosa & septum Neck: non-tender, supple Respiratory: clear to auscultation, normal air movement, No congested cough, No crackles/rales, No diminished breath sounds, No intercostal retraction, No labored breathing, No other, No respirations, No tactile fremitus, No wheezing Cardiovascular: nl pulses, regular rate and rhythm, No S3, No S4, No bruits, No diastolic murmur, No edema, No gallop, No irregular rhythm, No jugular venous distention (JVD), No murmurs/extra sounds, No other, No rub, No systolic murmur Gastrointestinal: nl liver, spleen, non-tender, soft, No ascites, No bowel sounds, No distended, No firm, No hepatomegaly, No mass , No other, No rebound or guarding, No splenomegaly, No surgical scars, No tender Neurological: SPECIAL PROJECTS MANAGER II-XII intact, nl mental status, nl speech, nl strength ( less right knee redness and swelling) Results Result Diagram: 12/01/16 0500 12/03/16 0541 Results 24 hrs Laboratory Tests Test 12/03/16 05:41 Blood Urea Nitrogen 23 H Creatinine 0.91 Medications Medications Current Medications Ondansetron HCl (Zofran Inj) 4 mg Q6H PRN IV NAUSEA AND/OR VOMITING; Start at 20:00 Acetaminophen (Tylenol Tab) 650 mg Q6H PRN PO PAIN LEVEL 1-3 OR FEVER Last administered on 12/01/16 09:22; Admin Dose 650 MG; Start 11/30/16 at 20:00 Acetaminophen/ Hydrocodone Bitart ([place] (5/325)) 1 tab Q6H PRN PO MODERATE PAIN LEVEL 4-6; Start 11/30/16 at 20:00 Morphine Sulfate (morphine) 2 mg Q4H PRN IV SEVERE PAIN LEVEL 7-10; Start 11/30 at 20:00 Docusate Sodium (Colace) 100 mg Q12H PRN PO CONSTIPATION; Start 11/30/16 at 20: 00 Famotidine (Pepcid) 20 mg HS PO Last administered on 12/02/16 21:13; Admin Dose 20 MG; Start 11/30/16 at 22:00 Heparin Sodium (Porcine) (Heparin (5000 Units/0.5 ml)) 5,000 unit Q12 SC Last administered on 12/03/16 09:33; Admin Dose 5,000 UNIT; Start 11/30/16 at 21:00 Amlodipine Besylate (Norvasc) 5 mg DAILY PO Last administered on 12/03/16 09: 31; Admin Dose 5 MG; Start 12/01/16 at 09:00 Aspirin (Halfprin) 81 mg DAILY PO Last administered on 12/03/16 09:30; Admin Dose 81 MG; Start 12/01/16 at 09:00 Donepezil HCl (Aricept) 5 mg DAILY PO Last administered on 12/03/16 09:30; Admin Dose 5 MG; Start 12/01/16 at 09:00 Dutasteride (Avodart) 0.5 mg DAILY PO Last administered on 12/03/16 09:30; Admin Dose 0.5 MG; Start 12/01/16 at 09:00 Multivitamins Therapeutic (Theragran) 1 tab DAILY PO Last administered on 09:31; Admin Dose 1 TAB; Start 12/01/16 at 09:00 Magnesium Oxide 400 mg 400 mg BID PO Last administered on 12/03/16 09:31; Admin Dose 400 MG; Start 12/01/16 at 13:00 Vancomycin HCl/ Sodium Chloride (Vancocin/NS) 250 ml @ 83.333 mls/ hr Q24H IVPB Last administered on 12/03/16 15:08; Admin Dose 83.333 MLS/HR; Start at 15:00 Miscellaneous Information (*Rx Drug Level Order Reminder*) VANCO TROUGH @ 1, 400 ON... ONCE ONCE XX ; Start 12/04/16 at 14:00; Stop 12/04/16 at 14:01 ANASTACIO BURK MD Dec 03, 2016 16:38
[2016-12-03] MEDS: FAMOTIDINE 20 MG TAB PO SCH (20:47)
[2016-12-03 20:48] VITALS: BP 127/60; RESP 20
[2016-12-04 08:13] VITALS: BP 137/71; RESP 18
[2016-12-04] MEDS: AMLODIPINE 5 MG TAB PO SCH (08:14)
[2016-12-04] MEDS: MULTIVITAMINS THERAPEUTIC TAB PO SCH (08:14)
[2016-12-04] MEDS: DUTASTERIDE 0.5 MG CAP PO SCH (08:14)
[2016-12-04] MEDS: MAGNESIUM OXIDE 400 MG TAB PO SCH ×2 (08:14→20:42)
[2016-12-04] MEDS: DONEPEZIL 5 MG TAB PO SCH (08:14)
[2016-12-04] MEDS: ASPIRIN (EC) 81 MG TAB PO SCH (08:14)
[2016-12-04] MEDS: HEPARIN 5,000 UNIT/0.5 ML SYG SC SCH ×2 (08:15→20:43)
--- NOTE | 2016-12-04 10:28 | PN ---
Date/Time of Note Date/Time of Note DATE: 12/04/16 TIME: 10:25 Assessment/Plan VTE Prophylaxis VTE Prophylaxis Intervention: other Lines/Catheters IV [facility] Saline Lock Urinary Cath still in place: No Assessment/Plan Problems: (1) Cellulitis of right knee Status: Acute Comment: This gentleman has significant arthritis of the knee on scanning. There are several notes in the progress notes that identify him to be seen by orthopedist but orthopedist apparently does not have the consult. I will have him seen by Dr. Wong as I am not certain this represents a septic arthritis at all. We will follow along closely but he may be doing well enough that we can consider discharge in the next 24 hours. 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 Constitutional: no complaints (Denies fever chills or sweats) Respiratory: no complaints Cardiovascular: no complaints Gastrointestinal: no complaints Genitourinary: no complaints Musculoskeletal: other (Reports knee pain and swelling on the right-hand side of significantly decreased.) Exam/Review of Systems Vital Signs Vitals Vital Signs Date Time Temp Pulse Resp B/P Pulse Ox O2 Delivery O2 Flow Rate FiO2 12/04/16 08:13 97.9 77 18 137/71 98 12/02/16 11:23 Room Air Intake and Output 12/03/16 12/03/16 12/04/16 15:00 23:00 07:00 Intake Total 1350 ml 1450 ml Balance 1350 ml 1450 ml Exam Constitutional: alert, oriented Respiratory: clear to auscultation, normal air movement Cardiovascular: nl pulses, regular rate and rhythm Musculoskeletal: other (Right knee with some swelling and erythema however less compared to what is described in the chart.) Results Result Diagram: 12/01/16 0500 12/03/16 0541 Medications Medications Current Medications Ondansetron HCl (Zofran Inj) 4 mg Q6H PRN IV NAUSEA AND/OR VOMITING; Start at 20:00 Acetaminophen (Tylenol Tab) 650 mg Q6H PRN PO PAIN LEVEL 1-3 OR FEVER Last administered on 12/01/16 09:22; Admin Dose 650 MG; Start 11/30/16 at 20:00 Acetaminophen/ Hydrocodone Bitart ([place] (5/325)) 1 tab Q6H PRN PO MODERATE PAIN LEVEL 4-6; Start 11/30/16 at 20:00 Morphine Sulfate (morphine) 2 mg Q4H PRN IV SEVERE PAIN LEVEL 7-10; Start 11/30 at 20:00 Docusate Sodium (Colace) 100 mg Q12H PRN PO CONSTIPATION; Start 11/30/16 at 20: 00 Famotidine (Pepcid) 20 mg HS PO Last administered on 12/03/16 20:47; Admin Dose 20 MG; Start 11/30/16 at 22:00 Heparin Sodium (Porcine) (Heparin (5000 Units/0.5 ml)) 5,000 unit Q12 SC Last administered on 12/04/16 08:15; Admin Dose 5,000 UNIT; Start 11/30/16 at 21:00 Amlodipine Besylate (Norvasc) 5 mg DAILY PO Last administered on 12/04/16 08: 14; Admin Dose 5 MG; Start 12/01/16 at 09:00 Aspirin (Halfprin) 81 mg DAILY PO Last administered on 12/04/16 08:14; Admin Dose 81 MG; Start 12/01/16 at 09:00 Donepezil HCl (Aricept) 5 mg DAILY PO Last administered on 12/04/16 08:14; Admin Dose 5 MG; Start 12/01/16 at 09:00 Dutasteride (Avodart) 0.5 mg DAILY PO Last administered on 12/04/16 08:14; Admin Dose 0.5 MG; Start 12/01/16 at 09:00 Multivitamins Therapeutic (Theragran) 1 tab DAILY PO Last administered on 08:14; Admin Dose 1 TAB; Start 12/01/16 at 09:00 Magnesium Oxide 400 mg 400 mg BID PO Last administered on 12/04/16 08:14; Admin Dose 400 MG; Start 12/01/16 at 13:00 Vancomycin HCl/ Sodium Chloride (Vancocin/NS) 250 ml @ 83.333 mls/ hr Q24H IVPB Last administered on 12/03/16t 15:08; Admin Dose 83.333 MLS/HR; Start at 15:00 Miscellaneous Information (*Rx Drug Level Order Reminder*) VANCO TROUGH @ 1, 400 ON... ONCE ONCE XX ; Start 12/04/16 at 14:00; Stop 12/04/16 at 14:01 SENDY SETHI MD Dec 04, 2016 10:28
--- NOTE | 2016-12-04 14:28 | CONS ---
Date/Time of Note Date/Time of Note DATE: 12/04/16 TIME: 14:28 Assessment/Plan Assessment/Plan Chief Complaint/Hosp Course ID PROGRESS NOTE CURRENT ABX=> Vanco IV #5 24H INTERVAL SUMMARY * Afebrile, VSS, NAD, A/A/O responsive * "Mucho Mejor" = "Much Better" == Patient and family report right knee cellulitis has RESOLVED * Synovial fluid culture (-) day #2 Maricruz: 12/02/16-0957 Rcvd: 12/02/16-1037 Source: SYN FLD Sp Descrip: Microbiology GRAM STAIN Final POLYMORPH. LEUKOCYTE 1+ . NO ORGANISM SEEN BODY FLUID CULTURE Preliminary No growth after 2 days PHYSICAL EXAMINATION: GENERAL: VSS, NAD HEENT: Unremarkable -- NECK: Supple, trachea midline. CHEST: Rise symmetrical, without dyspnea on observation HEART: Pulse RRR ABDOMEN: Soft, benign EXTREMITIES: Warm ID ASSESSMENT 86 yo M w/ Hx of mild senile dementia admit with: 1. Right knee pain w/effusion + cellulitis-> s/p fluid aspiration, cultures so far have been negative = RESOLVING * No evidence of septic arthritis per quick resolution with (-)Micro 2. Hypertension. 3. Anemia. 4. BPH INVASIVES: PIV, ABX ALLERGY: KNDA CURRENT ABX: => Vanco IV #5 ID RECOMMENDATIONS 1. Patient w/near resolution of cellulitis w/resolution of edema and marked improvement of pain 2. DC Vanco IV -> change to Clindamycin PO x 4 days 3. May DC home on PO ABX when cleared by PMD . Problems: Consultation Date/Type/Reason Admit Date/Time Nov 30, 2016 at 19:37 Initial Consult Date Exam/Review of Systems Vital Signs Vitals Vital Signs Date Time Temp Pulse Resp B/P Pulse Ox O2 Delivery O2 Flow Rate FiO2 12/04/16 08:13 97.9 77 18 137/71 98 12/02/16 11:23 Room Air Intake and Output 12/03/16 12/03/16 12/04/16 15:00 23:00 07:00 Intake Total 1350 ml 1450 ml Balance 1350 ml 1450 ml Results Result Diagram: 12/01/16 0500 12/03/16 0541 Medications Medications Current Medications Ondansetron HCl (Zofran Inj) 4 mg Q6H PRN IV NAUSEA AND/OR VOMITING; Start at 20:00 Acetaminophen (Tylenol Tab) 650 mg Q6H PRN PO PAIN LEVEL 1-3 OR FEVER Last administered on 12/01/16 09:22; Admin Dose 650 MG; Start 11/30/16 at 20:00 Acetaminophen/ Hydrocodone Bitart ([place] (5/325)) 1 tab Q6H PRN PO MODERATE PAIN LEVEL 4-6; Start 11/30/16 at 20:00 Morphine Sulfate (morphine) 2 mg Q4H PRN IV SEVERE PAIN LEVEL 7-10; Start 11/30 at 20:00 Docusate Sodium (Colace) 100 mg Q12H PRN PO CONSTIPATION; Start 11/30/16 at 20: 00 Famotidine (Pepcid) 20 mg HS PO Last administered on 12/03/16 20:47; Admin Dose 20 MG; Start 11/30/16 at 22:00 Heparin Sodium (Porcine) (Heparin (5000 Units/0.5 ml)) 5,000 unit Q12 SC Last administered on 12/04/16 08:15; Admin Dose 5,000 UNIT; Start 11/30/16 at 21:00 Amlodipine Besylate (Norvasc) 5 mg DAILY PO Last administered on 12/04/16 08: 14; Admin Dose 5 MG; Start 12/01/16 at 09:00 Aspirin (Halfprin) 81 mg DAILY PO Last administered on 12/04/16 08:14; Admin Dose 81 MG; Start 12/01/16 at 09:00 Donepezil HCl (Aricept) 5 mg DAILY PO Last administered on 12/04/16 08:14; Admin Dose 5 MG; Start 12/01/16 at 09:00 Dutasteride (Avodart) 0.5 mg DAILY PO Last administered on 12/04/16 08:14; Admin Dose 0.5 MG; Start 12/01/16 at 09:00 Multivitamins Therapeutic (Theragran) 1 tab DAILY PO Last administered on 08:14; Admin Dose 1 TAB; Start 12/01/16 at 09:00 Magnesium Oxide 400 mg 400 mg BID PO Last administered on 12/04/16 08:14; Admin Dose 400 MG; Start 12/01/16 at 13:00 Vancomycin HCl/ Sodium Chloride (Vancocin/NS) 250 ml @ 83.333 mls/ hr Q24H IVPB Last administered on 12/03/16 15:08; Admin Dose 83.333 MLS/HR; Start at 15:00 BRAXTON EDWARDS MANAGER RN CASE Dec 04, 2016 14:28
[2016-12-04] MEDS: VANCOMYCIN 1.25 GM in SOD CHLORIDE 0.9% 250 ML IVPB SCH (15:45)
[2016-12-04] MEDS: FAMOTIDINE 20 MG TAB PO SCH (20:42)
[2016-12-04] MEDS: CLINDAMYCIN 300 MG CAP PO SCH (22:35)
[2016-12-05] MEDS ORDERED: VANCOMYCIN 750 MG in SOD CHLORIDE 0.9% 150 ML IVPB SCH (03:00)
[2016-12-05 08:00] VITALS: BP 125/59; PULSE 62; RESP 18
[2016-12-05] MEDS: DUTASTERIDE 0.5 MG CAP PO SCH (08:06)
[2016-12-05] MEDS: ASPIRIN (EC) 81 MG TAB PO SCH (08:06)
[2016-12-05] MEDS: MAGNESIUM OXIDE 400 MG TAB PO SCH (08:06)
[2016-12-05] MEDS: DONEPEZIL 5 MG TAB PO SCH (08:07)
[2016-12-05] MEDS: CLINDAMYCIN 300 MG CAP PO SCH ×2 (08:07→13:03)
[2016-12-05] MEDS: MULTIVITAMINS THERAPEUTIC TAB PO SCH (08:07)
[2016-12-05] MEDS: HEPARIN 5,000 UNIT/0.5 ML SYG SC SCH (08:12)
[2016-12-05] MEDS: AMLODIPINE 5 MG TAB PO SCH (08:12)
[2016-12-05] MEDS ORDERED: CLIN-73 PO (10:21)
--- NOTE | 2016-12-05 10:21 | PDOCDIS ---
Discharge Instructions DIAGNOSIS Discharge Diagnosis: Right knee cellulitis without septic arthritis CONDITION Patient Condition: Good HOME CARE INSTRUCTIONS: Special Diet: low cholesterol ACTIVITY: Activity Restrictions: Slowly Increase Activity Do not operate Power Tool FOLLOW UP/APPOINTMENTS Appointments Follow-up with primary care physician Dr.Erlinda Guillory in 1 week SENDY SETHI MD Dec 05, 2016 10:20
--- NOTE | 2016-12-05 10:26 | DS ---
Date/Time of Note Date/Time of Note DATE: 12/05/16 TIME: 10:23 Discharge Summary Admission/Discharge Info Admit Date/Time Nov 30, 2016 at 19:37 Discharge Date/Time 12/05/2016 Final Diagnosis Cellulitis overlying the right knee without septic arthritis; osteoarthrosis/DJD ; organic brain syndrome; BPH; hypertension Patient Condition: Good Consults Infectious diseases; orthopedics/Dr. Wong Procedures Ultrasound-guided arthrocentesis of the right knee; MRI scan of the right knee Hx of Present Illness 86 yo male with a past medical history of essential hypertension, dementia, BPH , and arthritis, who presents with bilateral knee pain for 1 week duration. The patient states that the right knee hurts more than the left. Denies any falls or direct trauma recently. He had associated with this is fevers/chills, headaches, pain with mobility. No bug bites or recent scratches. Denies any chest pain, shortness of breath, loss of consciousness, urinary/bowel irregularities, or other constitutional symptoms. ER course: IV vanc Hospital Course ID PROGRESS NOTE CURRENT ABX=> Vanco IV #5 24H INTERVAL SUMMARY * Afebrile, VSS, NAD, A/A/O responsive * "Mucho Mejor" = "Much Better" == Patient and family report right knee cellulitis has RESOLVED * Synovial fluid culture (-) day #2 Maricruz: 12/02/16-57 Rcvd: 12/02/16-1037 Source: SYN FLD Sp Descrip: Microbiology GRAM STAIN Final POLYMORPH. LEUKOCYTE 1+ . NO ORGANISM SEEN BODY FLUID CULTURE Preliminary No growth after 2 days PHYSICAL EXAMINATION: GENERAL: VSS, NAD HEENT: Unremarkable -- NECK: Supple, trachea midline. CHEST: Rise symmetrical, without dyspnea on observation HEART: Pulse RRR ABDOMEN: Soft, benign EXTREMITIES: Warm ID ASSESSMENT 86 yo M w/ Hx of mild senile dementia admit with: 1. Right knee pain w/effusion + cellulitis-> s/p fluid aspiration, cultures so far have been negative = RESOLVING * No evidence of septic arthritis per quick resolution with (-)Micro 2. Hypertension. 3. Anemia. 4. BPH INVASIVES: PIV, ABX ALLERGY: KNDA CURRENT ABX: => Vanco IV #5 ID RECOMMENDATIONS 1. Patient w/near resolution of cellulitis w/resolution of edema and marked improvement of pain 2. DC Vanco IV -> change to Clindamycin PO x 4 days 3. May DC home on PO ABX when cleared by PMD Magdiel 86-year-old gentleman who had been in significant pain with a cellulitis. With IV antibiotics he has improved nicely and as you can see from the infectious disease note he is stable noted transition over to orals. With the transition is continued to improve. Please note I am not able to find the actual written notes from the orthopedist although I did speak to the myself yesterday to verify that they had received the consult. He is now stable for discharge she is improved condition as compared to the time of admission his rehabilitation potential is fair he has no known communicable diseases. . Home Meds Active Scripts Clindamycin Hcl* (Clindamycin Hcl*) 300 Mg Capsule, 300 MG PO QID for 5 Days, CAP Prov:SENDY SETHI MD 12/05/16 Reported Medications Magnesium Oxide (Magnesium) 250 Mg Tablet, 250 MG PO BID, TAB 11/30/16 Naproxen* (Naproxen*) 500 Mg Tablet, 500 MG PO DAILY, TAB 11/30/16 Dutasteride* (Avodart*) 0.5 Mg Capsule, 0.5 MG PO DAILY, CAP 11/30/16 Donepezil* (Donepezil*) 5 Mg Tablet, 5 MG PO DAILY, #30 TAB 11/30/16 Aspirin* (Aspirin* EC) 81 Mg Tablet.dr, 81 MG PO DAILY, TAB 11/30/16 Amlodipine Besylate* (Amlodipine Besylate*) 5 Mg Tablet, 5 MG PO DAILY, #30 TAB 11/30/16 Multivitamins* (Theragran*) 1 Tab Tab, 1 TAB PO DAILY, TAB 11/30/16 Pending Labs Laboratory Tests Test 12/04/16 14:14 Vancomycin Level Trough 10.7ug/ml (10.0-20.0) SENDY SETHI MD Dec 05, 2016 10:25
--- NOTE | 2016-12-05 17:03 | CONS ---
DATE OF ADMISSION: 11/30/2016 DATE OF CONSULTATION: 12/05/2016 HISTORY OF PRESENT ILLNESS: The patient is an 86-year-old male who was admitted on 11/30/2016, when he came to the emergency room complaining of increasing pain with mild swelling involving his right knee, which makes it difficult to walk. He is also having some pain involving his left knee. He i s known to have degenerative osteoarthritis for more than 10 years. He denies any fever or chills, or any history of trauma with the swelling. At the time of the admission, he was afebrile with a te mperature of 97.5, and was showing a low-grade fever with a temperature of 100.6, which is turning t o 97.5 later on. There was a mild leukocytosis with the WBC count of 11.3. According to the available medical record, there was swelling around the right knee along with some warmness and mild tenderness. At the time of admission, aspiration of the right knee was carried out, and it was showing leukocyto sis with the WBC count of 8553. However, Gram stain and culture and sensitivity was negative. He w as seen by infectious disease, who suspected a possible septic arthritis. He has been treated with vancomycin with gradual improvement. PHYSICAL EXAMINATION: VITAL SIGNS: At the time of my evaluation on 12/05/2016, he was afebrile. EXTREMITIES: There was minimal swelling around the right knee. There were no complaints or swellin g involving the left knee. DIAGNOSTIC STUDIES: X-rays of the left knee obtained at the time of admission were showing degenera tive osteoarthritis of mild to moderate degree. The MRI scan of the right knee was showing, again, degenerative osteoarthritis of moderate degree with the effusion. There were no signs of prepatella r bursitis on the MRI scan. DIAGNOSTIC IMPRESSION: 1. Symptomatic exacerbation of the preexisting degenerative osteoarthritis of both knees, worse on the right side. 2. Possible septic arthritis, which has improved with the IV antibiotics. RECOMMENDATIONS FOR MANAGEMENT: 1. Okay to be discharged from orthopedic surgical point of view. 2. Further followup as an outpatient. Dictated By: ARIA NOVAK/NTS Conf#: [id number] DID#: [id number]
== END 2016-12-05 14:50 | disposition home or self-care (01) | DRG 603 ==
LOC: E/R 12:09 → OBG 19:37 → PP2 20:39
PROVIDERS: ADMIT Student in an Organized Health Care Education/Training Program; ATTEND Student in an Organized Health Care Education/Training Program
PROC: 0S9C3ZX Drainage of Right Knee Joint, Percutaneous Approach, Diagnostic (ICD-10-PCS; principal; 2016-12-02)
DX: L03.115 Cellulitis of right lower limb (principal); N17.9 Acute kidney failure, unspecified; E86.0 Dehydration; F03.90 Unspecified dementia, unspecified severity, without behavioral disturbance, psychotic disturbance, mood disturbance, and anxiety; I10 Essential (primary) hypertension; N40.0 Benign prostatic hyperplasia without lower urinary tract symptoms; M25.461 Effusion, right knee; M17.0 Bilateral primary osteoarthritis of knee; F09 Unspecified mental disorder due to known physiological condition
CPT/HCPCS: 36415; 71010; 73562; 73721; 80048; 80053; 80061; 80202; 82565; 83036; 83605; 83735; 84443; 84520; 84560; 85025; 85610; 85651; 85730; 87040; 87070; 87086; 89051; 90686; 93005; 93971; 96374; 96375; 97116; 97162; 97530; J3370; J7040; J7050

== ENCOUNTER 2018-05-24 07:26 | Inpatient (IN) | END 2018-05-31 18:40 | disposition home health service (06) | DRG 872 ==